=== PATIENT | female | born 1975 | race Two or more races ===

== ENCOUNTER → 2018-04-20 | Outpatient (CLI) | payer OTHER | END | disposition home or self-care (01) | LOC: MAMO-SONO 11:30 | DX: Z12.31 Encounter for screening mammogram for malignant neoplasm of breast (principal); N63.10 Unspecified lump in the right breast, unspecified quadrant; N63.20 Unspecified lump in the left breast, unspecified quadrant ==

== ENCOUNTER 2018-06-08 09:23 | Outpatient (CLI) | payer OTHER | END 2018-06-08 09:25 | disposition home or self-care (01) | LOC: LAB 09:23 | DX: Z11.3 Encounter for screening for infections with a predominantly sexual mode of transmission (principal) ==

== ENCOUNTER 2019-11-08 10:18 | Outpatient (CLI) | payer OTHER | END 2019-11-08 11:08 | disposition home or self-care (01) | LOC: MAMO-SONO 10:18 | PROVIDERS: ATTEND Specialist | DX: Z12.31 Encounter for screening mammogram for malignant neoplasm of breast (principal); N63.10 Unspecified lump in the right breast, unspecified quadrant; N63.20 Unspecified lump in the left breast, unspecified quadrant ==

== ENCOUNTER 2020-05-15 12:47 | Outpatient (CLI) | payer OTHER | END 2020-05-15 16:08 | disposition home or self-care (01) | LOC: LAB 12:47 | PROVIDERS: ATTEND Physical Medicine & Rehabilitation | DX: Z11.59 Encounter for screening for other viral diseases (principal); Z20.822 Contact with and (suspected) exposure to COVID-19 ==

== ENCOUNTER 2020-07-12 06:21 | Day surgery (SDC) | payer OTHER ==
[~2020-07-12 06:21] MED LIST: SYNTHROID75 MCG PO
== END 2020-07-12 12:00 | disposition home or self-care (01) ==
LOC: CIR.AMB 06:21
PROVIDERS: ATTEND Plastic Surgery
DX: N64.81 Ptosis of breast (principal); N64.82 Hypoplasia of breast; Z20.822 Contact with and (suspected) exposure to COVID-19

== ENCOUNTER 2020-09-06 16:44 | Outpatient (CLI) | payer OTHER | END 2020-09-06 16:50 | disposition home or self-care (01) | LOC: LAB 16:44 | PROVIDERS: ATTEND Physical Medicine & Rehabilitation | DX: Z03.818 Encounter for observation for suspected exposure to other biological agents ruled out (principal); R06.02 Shortness of breath ==

== ENCOUNTER 2021-06-11 08:43 | Outpatient (CLI) | payer OTHER | END 2021-06-11 08:51 | disposition home or self-care (01) | LOC: MAMO-SONO 08:43 | PROVIDERS: ATTEND Specialist | DX: Z12.31 Encounter for screening mammogram for malignant neoplasm of breast (principal); N63.0 Unspecified lump in unspecified breast ==

== ENCOUNTER 2021-06-18 08:00 | Outpatient (CLI) | payer OTHER | END 2021-06-18 08:30 | disposition home or self-care (01) | LOC: PPH VACUNA 08:00 | PROVIDERS: ATTEND Emergency Medicine Pediatric Emergency Medicine | DX: Z23 Encounter for immunization (principal) | CPT/HCPCS: 90686; G0008 ==

== ENCOUNTER 2022-02-25 12:28 | Outpatient (CLI) | payer OTHER | END 2022-02-25 12:38 | disposition home or self-care (01) | LOC: PPH VACUNA 12:28 | PROVIDERS: ATTEND Emergency Medicine Pediatric Emergency Medicine | DX: Z23 Encounter for immunization (principal) ==

== ENCOUNTER 2022-12-30 10:49 | Outpatient (CLI) | payer OTHER | END 2022-12-30 10:53 | disposition home or self-care (01) | LOC: MAMO-SONO 10:49 | PROVIDERS: ATTEND Internal Medicine | DX: Z12.31 Encounter for screening mammogram for malignant neoplasm of breast (principal); Z12.39 Encounter for other screening for malignant neoplasm of breast ==

== ENCOUNTER 2023-01-13 03:00 | Outpatient (CLI) | payer OTHER | END 2023-01-13 03:10 | disposition home or self-care (01) | LOC: PPH VACUNA 03:00 | PROVIDERS: ATTEND Emergency Medicine Pediatric Emergency Medicine | DX: Z23 Encounter for immunization (principal) | CPT/HCPCS: 90686; G0008 ==

== ENCOUNTER 2024-05-29 14:24 | Outpatient (CLI) | payer OTHER | END 2024-05-29 14:29 | disposition home or self-care (01) | LOC: RAD 14:24 | PROVIDERS: ATTEND Physical Medicine & Rehabilitation | DX: N60.19 Diffuse cystic mastopathy of unspecified breast (principal); Z12.31 Encounter for screening mammogram for malignant neoplasm of breast; M54.50 Low back pain, unspecified; M25.552 Pain in left hip ==

== ENCOUNTER 2025-02-14 15:30 | Outpatient (CLI) | payer OTHER | END 2025-02-14 15:40 | disposition home or self-care (01) | LOC: PPH VACUNA 15:30 | PROVIDERS: ATTEND Emergency Medicine Pediatric Emergency Medicine | DX: Z23 Encounter for immunization (principal) ==